=== PATIENT | female | born 1995 | race Caucasian/White ===

== ENCOUNTER 2019-05-25 22:32 | Emergency (ER) | payer MEDICAID, OTHER ==
[~2019-05-25] VITALS: Ht 170.2 cm; Wt 59.0 kg
[2019-05-26 00:36] LABS: Urine Bacteria FEW /hpf (None Seen); Urine Blood Negative /uL (Negative); Urine Mucus FEW (None Seen); Urine Specific Gravity 1.023 (1.001-1.035); Urine WBC 4 /hpf (0 - 5)
[2019-05-26] MEDS ORDERED: CLINDAMYCIN HCL 150 MG CAP PO ONE (00:45)
[2019-05-26 00:53] VITALS: BP 115/70
== END 2019-05-26 00:59 | disposition home or self-care (01) ==
LOC: ER 22:32
DX: L02.811 Cutaneous abscess of head [any part, except face] (principal); Z88.0 Allergy status to penicillin; Z88.1 Allergy status to other antibiotic agents
CPT/HCPCS: 81001; 81025